=== PATIENT | female | born 1975 | race Caucasian/White ===

== ENCOUNTER 2023-02-22 15:43 | Emergency (ER) | payer BC ==
[~2023-02-22] VITALS: Ht 170.2 cm; Wt 75.0 kg
[2023-02-22 15:50] VITALS: TEMP 98
[2023-02-22 17:20] LABS: BASOPHILS # (AUTO) 0.1 X10'3 (0-0.2); EOSINOPHILS # (AUTO) 0.3 X10'3 (0-0.9); EOSINOPHILS % (AUTO) 3.5 % (0-6); HEMATOCRIT 33.1 % (35.0-45.0); HEMOGLOBIN 10.5 g/dl (12.0-16.0); LYMPHOCYTES # (AUTO) 2.2 X10'3 (1.1-4.8); LYMPHOCYTES % (AUTO) 26.7 % (21-51); MEAN CORPUSCULAR HEMOGLOBIN 23.8 PG (27.0-31.0); MEAN CORPUSCULAR HGB CONC 31.9 g/dL (33.0-36.5); MEAN CORPUSCULAR VOLUME 74.7 FL (78-98); MEAN PLATELET VOLUME 7.9 FL (7.4-10.4); MONOCYTES % (AUTO) 12.7 % (2-12); NEUTROPHILS # (AUTO) 4.6 X10'3 (1.8-7.7); NEUTROPHILS % (AUTO) 56.1 % (42-75); PLATELET COUNT 318 X10'3 (140-440); RED BLOOD COUNT 4.43 X10'6 (4.20-5.60); RED CELL DISTRIBUTION WIDTH 17.5 % (11.5-14.5); WHITE BLOOD COUNT 8.2 X10'3 (4.5-11.0)
[2023-02-22 17:24] LABS: APTT 26 SECONDS (22-32); PROTHROMBIN TIME 10.3 SECONDS (9.0-12.0)
[2023-02-22 17:25] LABS: ALANINE AMINOTRANSFERASE 19 U/L (12-78); ALBUMIN 3.9 G/DL (3.4-5.0); ALBUMIN/GLOBULIN RATIO 1.1 (1.1-1.5); ALKALINE PHOSPHATASE 64 IU/L (46-116); ANION GAP 8 (8-16); ASPARTATE AMINO TRANSFERASE 13 U/L (10-37); BILIRUBIN,TOTAL 0.4 MG/DL (0.1-1.0); BLOOD UREA NITROGEN 9 MG/DL (7-18); CALCIUM 9.1 MG/DL (8.5-10.1); CHLORIDE 109 MMOL/L (99-107); GLUCOSE 97 MG/DL (70-104); POTASSIUM 3.8 MMOL/L (3.5-5.1); SODIUM 142 MMOL/L (135-145); TOTAL CARBON DIOXIDE 24.7 MMOL/L (24-32); TOTAL PROTEIN 7.3 G/DL (6.4-8.2); eCRCL 74 ML/MIN; eGFR 67 ML/MIN
[2023-02-22] MEDS ORDERED: ketorolac tromethamine 15mg/ml inj. IV ONE (20:00)
[2023-02-22] MEDS ORDERED: proCHLORperazine 10 MG/2 ml inj IV ONE (20:00)
[2023-02-22] MEDS ORDERED: ringers solution, lacted 1,000 ML IV ONE (20:00)
[2023-02-22] MEDS ORDERED: SUMAtriptan succ. 6 MG/0.5ml vial SQ ONE (20:00)
[2023-02-22 21:01] VITALS: BP 162/67; PULSE 79; RESP 16; O2SAT 100
== END 2023-02-22 22:07 | disposition home or self-care (01) ==
LOC: ER 15:44
DX: G44.009 Cluster headache syndrome, unspecified, not intractable (principal); H11.32 Conjunctival hemorrhage, left eye
CPT/HCPCS: 36415; 70450; 80053; 85025; 85610; 85730; 96361; 96372; 96374; 96375; 99285; J0780; J1885; J3030; J7120